=== PATIENT | male | born 1970 | race African-American/Black ===

== ENCOUNTER 2024-02-07 02:29 | Emergency (ER) | payer OTHER ==
[2024-02-07 02:47] VITALS: BP 120/87; PULSE 96; RESP 18; TEMP 98.6; BMI 29.1
[2024-02-07] MEDS ORDERED: ACETAMINOPHEN 500 MG TABLET (FP) ONE (03:54)
[2024-02-07] MEDS: ACETAMINOPHEN 500 MG TABLET (FP) PO ONE (03:55)
== END 2024-02-07 04:01 | disposition home or self-care (01) ==
LOC: FER 02:29
DX: S93.402A Sprain of unspecified ligament of left ankle, initial encounter (principal); X50.9XXA Other and unspecified overexertion or strenuous movements or postures, initial encounter
CPT/HCPCS: 73610-TC-LT-FY; 73630-TC-LT; 99283-25